=== PATIENT | female | born 1995 ===

== ENCOUNTER 2017-11-14 08:42 | Outpatient (CLI) | payer OTHER ==
[~2017-11-14] VITALS: Ht 149.9 cm; Wt 40.4 kg
== END 2017-11-14 09:00 | disposition home or self-care (01) ==
LOC: OFIC 805 08:42
DX: J37.0 Chronic laryngitis (principal); J31.0 Chronic rhinitis; R42 Dizziness and giddiness

== ENCOUNTER 2017-12-07 20:38 | Emergency (ER) | payer OTHER ==
[~2017-12-07] VITALS: Ht 149.9 cm; Wt 40.8 kg
== END 2017-12-07 21:52 | disposition home or self-care (01) ==
LOC: ER 20:38
DX: R06.02 Shortness of breath (principal); F06.4 Anxiety disorder due to known physiological condition

== ENCOUNTER 2017-12-19 08:59 | Outpatient (CLI) | payer OTHER ==
[~2017-12-19] VITALS: Ht 121.9 cm; Wt 40.4 kg
[2017-12-19] MEDS ORDERED: LIPO-FLAVONOID1 EACH PO (10:31)
== END 2017-12-19 09:15 | disposition home or self-care (01) ==
LOC: OFIC 805 08:59
DX: R42 Dizziness and giddiness (principal); J31.0 Chronic rhinitis; J37.0 Chronic laryngitis

== ENCOUNTER 2018-01-04 08:21 | Outpatient (CLI) | payer OTHER ==
[~2018-01-04] VITALS: Ht 121.9 cm; Wt 40.4 kg
[~2018-01-04 08:21] MED LIST: LIPO-FLAVONOID1 EACH PO
== END 2018-01-04 08:40 | disposition home or self-care (01) ==
LOC: OFIC 805 08:21
DX: R42 Dizziness and giddiness (principal); F41.1 Generalized anxiety disorder

== ENCOUNTER 2018-10-18 08:11 | Outpatient (CLI) | payer OTHER | END 2018-10-18 08:13 | disposition home or self-care (01) | LOC: SONOGRAMA 08:11 → MAMO-SONO 08:15 | DX: E03.8 Other specified hypothyroidism (principal) ==

== ENCOUNTER 2019-11-05 09:22 | Outpatient (CLI) | payer OTHER | END 2019-11-05 09:40 | disposition home or self-care (01) | LOC: LAB 09:22 | PROVIDERS: ATTEND Internal Medicine Hematology & Oncology | DX: D50.8 Other iron deficiency anemias (principal); I10 Essential (primary) hypertension; D68.8 Other specified coagulation defects; D68.0 Von Willebrand disease; D68.4 Acquired coagulation factor deficiency ==